=== PATIENT | female | born 1970 | race American Indian/Alaskan Native ===

== ENCOUNTER 2020-12-01 14:35 | Emergency (ER) | payer OTHER, MEDICAID, SELFPAY ==
[2020-12-01 14:52] VITALS: BP 105/63; PULSE 82; RESP 18; TEMP 36.6; O2SAT 98
--- NOTE | 2020-12-01 14:58 | DI.RAD.S_ITS ---
PROCEDURE: XR CHEST 2V INDICATIONS: cough/congestion TECHNIQUE: 2 views of the chest were acquired. COMPARISON: None. FINDINGS: Surgical changes and devices: None. Lungs and pleura: Lungs are clear. No pleural effusions or pneumothorax. Mediastinum: Mediastinal contours are normal. Heart size is normal. Bones and chest wall: No suspicious bony abnormalities. Soft tissues appear unremarkable. IMPRESSION: No acute cardiopulmonary disease process. Dictated by: Stacey Baca MD, PhD on 12/01/2020 at 15:38 Approved by: Stacey Baca MD, PhD on 12/01/2020 at 15:38
[2020-12-01 15:45] LABS: COVID19 -Nasal RAPID Negative (Negative)
--- NOTE | 2020-12-01 17:35 | ED.URI ---
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 She states she was vaccinated against COVID several months ago. She denies any fevers muscle aches or chills. She denies any nausea vomiting or diarrhea. She denies any chest pain, shortness of breath or ear pain. Related Data Allergies Allergy/AdvReac Type Severity Reaction Status Date / Time No Known Allergies Allergy Unknown Unverified 08/03/17 12:19 [NO KNOWN ALLERGIES] ondansetron [ONDANSETRON] Allergy Unknown ORAL FOR Unverified 08/03/17 12:19 MAKES HER VOMIT MORE Review of Systems <KENDRA Chandler - Last Filed: 12/01/20 18:31> Review of Systems Narrative: GENERAL: Denies chills, fatigue, malaise, fever, sweats. HEENT: see HPI RESPIRATORY: see HPI CARDIOVASCULAR: Denies chest pain, palpitations, orthopnea, edema, GASTROINTESTINAL: Denies nausea, vomiting, abdominal pain, diarrhea, constipation, melena. : Denies dysuria, frequency, incontinence, hematuria, urinary retention. MUSCULOSKELETAL: denies weakness, joint pain, or bony pain SKIN: Denies rash, skin lesions, or other NEUROLOGIC: Denies weakness, headache, numbness, change in speech, confusion, seizures, incoordination. PSYCHIATRIC: No concerning psychosocial issues. 12 point review of systems is negative except for those stated above Exam <DEBRA Chandler - Last Filed: 12/01/20 18:31> Narrative Exam Narrative: GENERAL: This is a well-nourished, well-developed patient, in No acute distress HEAD: Atraumatic. Normocephalic. No temporal or scalp tenderness. EYES: Pupils equal round and reactive. Extraocular motions intact. No scleral icterus. No injection or drainage. ENT: Nose without bleeding, purulent drainage or septal hematoma. Throat without erythema, tonsillar hypertrophy or exudate. Uvula midline. Airway patent. bilateral TMs pearly lawson. NECK: Trachea midline. No JVD or lymphadenopathy. Supple, nontender, no meningeal signs. CARDIOVASCULAR: Regular rate and rhythm RESPIRATORY: Clear to auscultation. Breath sounds equal bilaterally. No wheezes, rales, or rhonchi. No cough. No increased respiratory effort. . No accessory muscle use. GASTROINTESTINAL: Abdomen soft, non-tender, nondistended. No hepato-splenomegaly, or palpable masses. No guarding. EXTREMITIES: No clubbing, cyanosis, or edema. No joint tenderness, effusion, or edema noted. BACK: Nontender without deformity or crepitance. No flank tenderness. NEURO: AOx3. SKIN: No rash or erythema On visible skin Initial Vital Signs Initial Vital Signs: Vital Signs Temperature 97.8 F 12/01/20 14:52 Pulse Rate 82 12/01/20 14:52 Respiratory Rate 18 12/01/20 14:52 Blood Pressure 105/63 12/01/20 14:52 Pulse Oximetry 98 12/01/20 14:52 <Harrison Jackman DO - Last Filed: 12/01/20 18:32> Initial Vital Signs Initial Vital Signs: Vital Signs Temperature 97.8 F 12/01/20 14:52 Pulse Rate 82 12/01/20 14:52 Respiratory Rate 18 12/01/20 14:52 Blood Pressure 105/63 12/01/20 14:52 Pulse Oximetry 98 12/01/20 14:52 Scores <DEBRA Chandler - Last Filed: 12/01/20 18:31> GCS Romeo coma scale eye opening: Spontaneous Gilbert coma scale verbal response: Orientated Gilbert coma scale motor response: Obey commands Gilbert coma scale total score: 15 <Harrison Jackman DO - Last Filed: 12/01/20 18:32> GCS Romeo coma scale total score: 15 Course <DEBRA Chandler - Last Filed: 12/01/20 18:31> Orders Ordered: ED Orders 12/01/20 14:58 Chest [XR chest 2V] Stat COVID19 -Nasal swab/Pre-Proc Stat Vital Signs Vital signs: Vital Signs - 8 hr 12/01/20 14:52 12/01/20 17:46 Temperature 97.8 F Pulse Rate 82 66 Respiratory Rate 18 14 Blood Pressure 105/63 106/58 L Pulse Oximetry 98 99 <Harrison FuentesDO shelbi - Last Filed: 12/01/20 18:32> Orders Ordered: ED Orders 12/01/20 14:58 Chest [XR chest 2V] Stat COVID19 -Nasal swab/Pre-Proc Stat Vital Signs Vital signs: Vital Signs - 8 hr 12/01/20 14:52 12/01/20 17:46 Temperature 97.8 F Pulse Rate 82 66 Respiratory Rate 18 14 Blood Pressure 105/63 106/58 L Pulse Oximetry 98 99 MDM - URI/Sore Throat <DEBRA Chandler - Last Filed: 12/01/20 18:31> Lab Data Labs: Lab Results 12/01/20 Range/Units 14:58 SARS-CoV-2 (PCR) Negative (Negative) Imaging Data Chest x-ray: Radiologist's Impression: [address] [place] [id number] ReportSigned Patient: Peg Mcknight AMR#: [id number]: 1970Acct:[id number]/Sex: 50 / FDate of Service: 12/01/20Loc: EDAccession Number: [id number] Procedure: XR chest 2V Ordering Provider: Radha Rosales PROCEDURE: XR CHEST 2V INDICATIONS: cough/congestion TECHNIQUE: 2 views of the chest were acquired. COMPARISON: None. FINDINGS: Surgical changes and devices: None. Lungs and pleura: Lungs are clear. No pleural effusions or pneumothorax. Mediastinum: Mediastinal contours are normal. Heart size is normal. Bones and chest wall: No suspicious bony abnormalities. Soft tissues appear unremarkable. IMPRESSION: No acute cardiopulmonary disease process. Dictated by: Stacey Baca MD, PhD on 12/01/2020 at 15:38 Approved by: Stacey Baca MD, PhD on 12/01/2020 at 15:38 [facility] Narrative Medical decision making narrative: the patient is a 42-year-old female who presents with a chief complaint of 3 days of coughing congestion. X-ray is no acute findings, coronavirus test is negative. She appears well and nontoxic. I discussed at length follow up with primary care provider coming back to the ER for acute concerns, discussed at length use of [id number] medications. Room agents no questions or concerns upon discharge states understanding of return precautions as well as follow-up care, has been hemodynamically stable throughout her stay in the ER. <Harrison Jackman DO - Last Filed: 12/01/20 18:32> Lab Data Labs: Lab Results 12/01/20 Range/Units 14:58 SARS-CoV-2 (PCR) Negative (Negative) Discharge Plan Departure Patient Disposition: Home Clinical Impression: Upper respiratory infection Qualifiers: URI type: unspecified viral URI Qualified Code(s): J06.9 - Acute upper respiratory infection, unspecified Instructions: DI for Viral Upper Respiratory Infection -- Adult Activity Restrictions/Additional Instructions: thank you for trusting us with your care today with your care today. As discussed, your to chest x-ray and no acute findings and no indication Of pneumonia. Your COVID came back negative and your exam is reassuring. Please use [id number] measures as needed and able. As discussed, please follow-up with primary care provider in the next few days. Please come back to the emergency department for any acute concerns. I have given you contact information to the [facility] natural resources specialist, who can help you identify primary care provider in the area. Referrals: [facility] [Outside] <Harrison Jackman DO - Last Filed: 12/01/20 18:32> Cosign ED Attending Cosignature Attestation: Dr Jackman Co-Sign Statement: I was available for consultation during this patient's emergency department visit. This chart is signed by myself for administrative purposes only. I did not have direct contact with this patient during this visit. They were seen independently by the APC.
[2020-12-01 17:46] VITALS: BP 106/58; PULSE 66; RESP 14; O2SAT 99
== END 2020-12-01 18:06 | disposition home or self-care (01) ==
PROVIDERS: Emergency Provider Nurse Practitioner Family
DX: J06.9 Acute upper respiratory infection, unspecified (principal); Z20.822 Contact with and (suspected) exposure to COVID-19
CPT/HCPCS: 71046; 87635; 99282; 99283; C9803

== ENCOUNTER 2021-01-26 15:14 | Emergency (ER) | payer OTHER, MEDICAID, SELFPAY ==
[2021-01-26 15:17] VITALS: BP 97/50; PULSE 83; RESP 18; TEMP 36.6; O2SAT 97
--- NOTE | 2021-01-26 15:23 | DI.RAD.S_ITS ---
PROCEDURE: XR CHEST 2V INDICATIONS: cough/congestion TECHNIQUE: 2 views of the chest were acquired. COMPARISON: [facility], CR, XR CHEST 2V, 12/01/2020, 15:11. FINDINGS: Surgical changes and devices: None. Lungs and pleura: Elevation of right hemidiaphragm is seen suggestive of small right pleural effusion. Ill-defined airspace opacities in bilateral lower lung spencer are seen more prominent on the right side. No pneumothorax. Mediastinum: Mediastinal contours are normal. Heart size is normal. Bones and chest wall: No suspicious bony abnormalities. Soft tissues appear unremarkable. IMPRESSION: Suggestion of small right pleural effusion and right worse than left bilateral lower lobe infiltrate/atelectasis. No gross pneumothorax. Dictated by: Davey Diego M.D. on 01/26/2021 at 15:39 Approved by: Davey Diego M.D. on 01/26/2021 at 15:39
--- NOTE | 2021-01-26 19:47 | ED_ITS ---
HPI - URI/Sore Throat General Chief Complaint: Upper Respiratory Symptoms Stated Complaint: HAVE PNEUMONIA SOB Time Seen by Provider: 01/26/21 19:44 Source: patient Mode of arrival: Ambulatory Limitations: no limitations History of Present Illness HPI Narrative: This is a 50-year-old female who comes to the emergency department with complaint of pneumonia that was diagnosed on the 19 of January. Patient was started on Augmentin and doxycycline. She has been taking the Augmentin only. She has had nausea when she takes it. She has not had fevers. She continued to have pain particularly in the morning when she wakes up and feels wheezy and has a lot of coughing. She has not had any lightheadedness or passing out. She does not have persistent chest pain. She does not have vomiting. She has not any abdominal, back or flank pain. No urinary symptoms. No diarrhea constipation. She does not any swelling in her extremities. 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 She has not used since November. She denies any other known medical issues. She has had a cholecystectomy. She has not been smoking last couple days but does normally smoke. She denies any daily alcohol. She denies any recent or IV drug use. Patient was seen at a urgent care in [place], [place]. Related Data Previous Rx's Medication Instructions Recorded levofloxacin 750 mg tablet 750 mg PO DAILY 7 Days #7 tab 01/26/21 Allergies Allergy/AdvReac Type Severity Reaction Status Date / Time No Known Allergies Allergy Unknown Unverified 08/03/17 12:19 [NO KNOWN ALLERGIES] ondansetron [ONDANSETRON] Allergy Unknown ORAL FOR Unverified 08/03/17 12:19 MAKES HER VOMIT MORE Review of Systems Review of Systems ROS Unobtainable: All systems reviewed & are unremarkable except as noted in HPI and below Patient History Social History Smoking Status: Current every day smoker Smoking Status: Current every day smoker Exam Narrative Exam Narrative: GENERAL: Alert and oriented x three, thin female in mild distress. HEENT: Head normocephalic, atraumatic, EOMI, pupils reactive, face symmetric, moist mucous membranes NECK: Supple, full range of motion CARDIOVASCULAR: Regular rate and rhythm without murmurs, rubs or gallops. RESPIRATORY: Breath sounds equal bilaterally, no wheezes rales or rhonchi. No tachypnea accessory muscle use. ABDOMEN: Soft, nontender. Normoactive bowel sounds all 4 quadrants. No guarding or rebound, rigidity, no mass : No CVA tenderness EXTREMITIES: Normal range of motion, no edema bilateral lower extremity. Neurovascularly intact NEUROLOGICAL: Cranial nerves II through XII grossly intact. Moving all extremities SKIN: Warm, dry, no petechiae, no rashes or lesions. Initial Vital Signs Initial Vital Signs: Vital Signs Temperature 97.9 F 01/26/21 15:17 Pulse Rate 83 01/26/21 15:17 Respiratory Rate 18 01/26/21 15:17 Blood Pressure 97/50 L 01/26/21 15:17 Pulse Oximetry 97 01/26/21 15:17 Course Orders Ordered: ED Orders 01/26/21 20:38 COVID19 -Nasal swab/Pre-Proc Stat Discontinued Medications Albuterol (Albuterol Hfa Prepack) 1 box [facility] SEEINSTR ONE Stop: 01/26/21 19:59 Last Admin: 01/26/21 20:35 Dose: 1 box Documented by: RAMON Vital Signs Vital signs: Vital Signs - 8 hr 01/26/21 15:17 Temperature 97.9 F Pulse Rate 83 Respiratory Rate 18 Blood Pressure 97/50 L Pulse Oximetry 97 MDM - URI/Sore Throat Lab Data Labs: Lab Results 01/26/21 Range/Units 20:38 SARS-CoV-2 (PCR) Negative (Negative) Imaging Data Chest x-ray: Radiologist's Impression: [address] [address] XRay Report Signed Patient: Peg Mcknight MR#: [id number] : 1970 Acct:[id number] Age/Sex: 50 / F Date of Service: 01/26/21 Loc: ED Accession Number: [id number] ?? Procedure: XR chest 2V Ordering Provider: Lora Peguero D.O. PROCEDURE:? XR CHEST 2V ? INDICATIONS:? cough/congestion ? TECHNIQUE:? 2 views of the chest were acquired.? ? COMPARISON:? [facility], [facility], XR CHEST 2V, 12/01/2020, 15:11. ? FINDINGS:? ? Surgical changes and devices:? None.? ? Lungs and pleura:? Elevation of right hemidiaphragm is seen suggestive of small right pleural effusion.? Ill-defined airspace opacities in bilateral lower lung spencer are seen more prominent on the right side.? No pneumothorax. ? Mediastinum:? Mediastinal contours are normal.? Heart size is normal.? ? Bones and chest wall:? No suspicious bony abnormalities.? Soft tissues appear unremarkable.? ? IMPRESSION:? Suggestion of small right pleural effusion and right worse than left bilateral lower lobe infiltrate/atelectasis.? No gross pneumothorax. ? ? Dictated by: Davey Diego M.D. on 01/26/2021 at 15:39 ? ? Approved by: Davey Diego M.D. on 01/26/2021 at 15:39?? [facility] Narrative Medical decision making narrative: This is a 50-year-old female who was diagnosed with pneumonia approximately 1 week ago. Patient has been taking Augmentin, she has been prescribed doxycycline Augmentin but found the doxycycline to harsh. Patient has not been worsening but has not improved. She is not having active fevers. Chest x-ray does show pneumonia day but we do not have her prior for comparison. COVID swab was negative. Patient lives on [facility] deferred additional workup is they would not be able to make their very home tonight. Patient was switched to a new oral antibiotic. She is not wheezy here in the department but was given a albuterol MDI to see if this is helpful. She was asked to return for re-evaluation if she is not improving in the short term or if there are any additional concerns. Discharge Plan Departure Patient Disposition: Home Clinical Impression: Pneumonia Instructions: DI for Pneumonia -- Adult Activity Restrictions/Additional Instructions: Follow up with your physician for recheck. Call for an appointment. You do have pneumonia on your x-ray still. Can try changing her antibiotics if you are not having any improvement. I do recommend using albuterol 1-2 puffs every 4 hours for any wheezing or shortness of breath. Your COVID swab is pending and has not resulted. Please return for new or worsening symptoms your having fevers, worsening chest pain or shortness of breath, persistent vomiting, new swelling in her extremities or other new or concerning symptoms. Prescriptions: New levofloxacin 750 mg tablet 750 mg PO DAILY 7 Days Qty: 7 RF: 0
[2021-01-26] MEDS: ALBUTEROL HFA PREPACK 1 BOX MISC (20:35)
[2021-01-26 20:54] LABS: COVID19 -Nasal RAPID Negative (Negative)
== END 2021-01-26 20:34 | disposition home or self-care (01) ==
PROVIDERS: Emergency Provider Emergency Medicine
DX: J18.9 Pneumonia, unspecified organism (principal); Z20.822 Contact with and (suspected) exposure to COVID-19
CPT/HCPCS: 71046; 87635; 99283; C9803

== ENCOUNTER → 2021-04-03 09:53 | Outpatient (CLI) | payer OTHER, MEDICAID, SELFPAY ==
[2021-04-03 12:20] LABS: COVID19 -Nasal RAPID Negative (Negative)
== END ==
PROVIDERS: PCP Family Medicine; Visit Provider Surgery
DX: Z01.812 Encounter for preprocedural laboratory examination (principal); Z20.822 Contact with and (suspected) exposure to COVID-19
CPT/HCPCS: 87635; C9803

== ENCOUNTER 2021-04-06 08:31 | Day surgery (SDC) | payer OTHER, MEDICAID, SELFPAY ==
[2021-04-06] VITALS (8 sets, daily range): BP systolic 84–103; BP diastolic 51–61; PULSE 58–85; RESP 14–18; TEMP 36.4–37; O2SAT 98–100; BMI 17.9
[2021-04-06] MEDS: LACTATED RINGERS 1,000 ML 200 ML IV (08:54)
--- NOTE | 2021-04-06 08:59 | PM.PREOP ---
Pre-operative Note Interval Note History & Physical reviewed/Exam performed by Physician: Yes Changes to H&P: No
[2021-04-06] MEDS: fentaNYL 250 MCG/5 ML INJ IV (09:21)
[2021-04-06] MEDS: LIDOCAINE 4% SOLN 50 ML 20 ML TOP (09:24)
[2021-04-06] MEDS: MIDAZOLAM 5 MG/5 ML VIAL IV (09:24)
--- NOTE | 2021-04-06 09:38 | P.OP.EGD&C_ITS ---
Operative Date/Time/Diagnoses Date of procedure: 04/06/21 Time of procedure: 09:38 Pre-op diagnosis: Anemia Post-op diagnosis: other (Gastritis) Procedure & Clinicians Study performed: Esophagoduodenoscopy and colonoscopy Same procedure as scheduled: Yes Indications: Anemia Surgeon: Garry Xavier Procedure Notes Procedure in detail: Medications: Conscious sedation using 7mg IV midazolam and 150mcg IV of fentanyl The history and physical was performed/updated and the patient is ASA class is 2 . The procedure was discussed in detail with the patient. Potential risks complications including infection, bleeding, missed diagnosis, perforation, need for surgery, and were explained. Their questions were answered and informed consent was obtained. Patient placed in left lateral decubitus position. Time out was performed. P rocedural sedation was administered with Versed and Fentanyl. A bite block was placed. the scope was inserted into the mouth and advanced through the esophagus and into the stomach. Stomach was significant for mild gastritis. Pylorus was intubated and the duodenum was normal to the 2nd portion. The scope was retroflexed within the stomach and there was a hiatal hernia. The scope was withdrawn into the esophagus the Z line was seen at 37 cm from the incisions. There was no Coelho's esophagitis or masses or strictures. Stomach was desufflated and scope removed. Patient tolerated procedure well. Examination began with a thorough inspection of the perianal area there was no evidence of fissures, fistulae, external hemorrhoids or cutaneous malignancy. The colonoscopy scope was then placed into the anal canal and was advanced to the cecum, which was identified by the ileocecal valve, the appendiceal orifice and the confluence of the taenia. The scope was then slowly withdrawn examining colon thoroughly in all directions, irrigating it of any residual stool. FINDINGS 1. Mild gastritis. No ulcers 2. Tortuous colon. no masses or polyps The patient tolerated the procedure well. They will be discharged once criteria are met. The prep was of good/excellent quality. The withdrawl time was 6 minutes. The sedation time was 30 minutes. Findings: gastritis Specimen(s): none sent Complications: none Impression: Gastritis Post-procedure Recommendations: Colonscopy in 10 years Plan for aftercare: Pepcid once daily Disposition: same day surgery
--- NOTE | 2021-04-06 10:09 | SUR.PHASEI ---
0940 hrs: Pt arrives PACU breathing unassisted, Report from JUAN Gonzalez.
--- NOTE | 2021-04-06 10:10 | SUR.PHASEI ---
1001 hrs: Pt to [facility] 3. Report to JUAN Willingham.
--- NOTE | 2021-04-06 10:22 | SUR.PHASEII ---
Pt ready to go, ride called, call went to voicemail, mailbox full. Pt w/o complaints.
--- NOTE | 2021-04-06 10:49 | SUR.PHASEII ---
Kevin called again, still not available.
== END 2021-04-06 11:15 | disposition home or self-care (01) ==
PROVIDERS: PCP Family Medicine; Referring Provider Surgery; Visit Provider Surgery
PROC: 0DJ08ZZ Inspection of Upper Intestinal Tract, Via Natural or Artificial Opening Endoscopic (ICD-10-PCS; CPT 43235; principal; 2021-04-06 09:15)
PROC: 0DJD8ZZ Inspection of Lower Intestinal Tract, Via Natural or Artificial Opening Endoscopic (ICD-10-PCS; CPT 45378; 2021-04-06 09:15)
DX: D64.9 Anemia, unspecified (principal); R63.4 Abnormal weight loss; R10.30 Lower abdominal pain, unspecified; Z68.1 Body mass index [BMI] 19.9 or less, adult; F17.210 Nicotine dependence, cigarettes, uncomplicated; K44.9 Diaphragmatic hernia without obstruction or gangrene; K29.70 Gastritis, unspecified, without bleeding
CPT/HCPCS: 43235; 45378; 99152; 99153; J2250; J3010

== ENCOUNTER 2021-05-20 13:27 | Emergency (ER) | payer OTHER, MEDICAID, SELFPAY ==
[2021-05-20 13:30] VITALS: BP 105/51; PULSE 68; RESP 14; TEMP 36.3; O2SAT 100; BMI 18.3
--- NOTE | 2021-05-20 13:37 | DI.RAD.S_ITS ---
PROCEDURE: XR SHOULDER RT MIN 2V INDICATIONS: shoulder pain TECHNIQUE: 3 views of the shoulder were acquired. COMPARISON: [facility], CR, XR CHEST 2V, 01/26/2021, 15:33. FINDINGS: Bones: No fractures or dislocations. No suspicious bony lesions. Visualized ribs appear intact. Soft tissues: No suspicious soft tissue calcifications. IMPRESSION: No acute osseous abnormality. Dictated by: Bonifacio Mccoy M.D. on 05/20/2021 at 13:49 Approved by: Bonifacio Mccoy M.D. on 05/20/2021 at 13:50
[2021-05-20 14:41] VITALS: BP 109/54; PULSE 67; O2SAT 99
--- NOTE | 2021-05-20 15:00 | ED_ITS ---
HPI - Extremity Problem General Chief complaint: Extremity Problem,Nontraumatic Stated complaint: Pain in right shoulder for over a month Time Seen by Provider: 05/20/21 15:00 Source: patient Mode of arrival: Ambulatory History of Present Illness HPI Narrative: Patient is a 51-year-old female who is here for evaluation of right shoulder pain. The pain is been going on for the past 6 weeks. No specific injury that caused the discomfort. Has now having problems putting her arm and certain positions. Has not been evaluated for this up to this point. Has not tried anything for the symptoms up to this point. She states when the pain becomes very intense it radiates down the front of her right arm. She has no tingling in her hand. Related Data Home Medications Medication Instructions Recorded Confirmed albuterol sulfate 90 mcg/actuation 1 puff INHALATION Q4-6H PRN g 03/25/21 04/06/21 aerosol inhaler buprenorphine 8 mg-naloxone 2 mg 1 film SUBLINGUAL BID ea 03/25/21 04/06/21 sublingual film (Suboxone) buspirone 15 mg tablet 15 mg PO BID 03/25/21 04/06/21 food supplemt, lactose-reduced ea PO 03/25/21 03/25/21 (Ensure) trazodone 50 mg tablet 50 mg PO DAILY 03/25/21 04/06/21 Previous Rx's Medication Instructions Recorded famotidine 20 mg tablet 20 mg PO DAILY #90 tab 04/06/21 Allergies Allergy/AdvReac Type Severity Reaction Status Date / Time No Known Allergies Allergy Unknown Verified 05/20/21 13:34 [NO KNOWN ALLERGIES] Review of Systems Constitutional Constitutional: Reports system reviewed and no additional complaints, except as documented Musculoskeletal Musculoskeletal: Reports system reviewed and no additional complaints, except as documented and Reports as per HPI Integumentary/Breasts Skin/Breast: Reports system reviewed and no additional complaints, except as documented Neurologic Neurologic: Reports system reviewed and no additional complaints, except as documented and Reports as per HPI Hematologic/Lymphatic On Anticoagulants: No Patient History Medical History Anemia Surgical History H/O right knee surgery History of cholecystectomy Surgical history of tubal ligation Family History Grandmother Hypertension Stroke Sister Gallstones Grandmother Colon cancer Social History marital status: unknown household members: family occupational status: unemployed Smoking Status: Former smoker alcohol intake: former Smoking Status: Former smoker alcohol intake frequency: holidays/special occasions only Substance Use Type: does not use Exam Initial Vital Signs Initial Vital Signs: Vital Signs Temperature 97.4 F L 05/20/21 13:30 Pulse Rate 68 05/20/21 13:30 Respiratory Rate 14 05/20/21 13:30 Blood Pressure 105/51 L 05/20/21 13:30 Pulse Oximetry 100 05/20/21 13:30 HENMT Head: normal to inspection and normocephalic Resp Effort & Inspection: normal respiratory effort Auscultation: clear to auscultation bilaterally Cardio Pulses: radial pulses present on the right Skin General: no rashes or lesions noted Neuro General: patient alert, patient awake, patient oriented x3 and moves all extremities Extrem General: capillary refill normal Other: Patient with tenderness to palpation over the AC joint on the right and also tenderness over the biceps tendon. Has a positive Neer test. Positive [place]field test. Positive cross-arm test. Also has some tenderness along the scapula on the right. Course Orders Ordered: ED Orders 05/20/21 13:37 XR shoulder RT min 2V Stat Vital Signs Vital signs: Vital Signs - 8 hr 05/20/21 13:30 05/20/21 14:41 Temperature 97.4 F L Pulse Rate 68 67 Respiratory Rate 14 Blood Pressure 105/51 L 109/54 L Pulse Oximetry 100 99 MDM - Extremity (Nontraumatic) Imaging Data Extremity x-ray #1: Radiologist's Impression: [address] [address] XRay Report Signed Patient: Peg Mcknight MR#: [id number] : 1970 Acct:[id number] Age/Sex: 51 / F Date of Service: 05/20/21 Loc: ED Accession Number: [id number] ?? Procedure: XR shoulder RT min 2V Ordering Provider: Harrison Jackman D.O. PROCEDURE:? XR SHOULDER RT MIN 2V ? INDICATIONS:? shoulder pain ? TECHNIQUE:? 3 views of the shoulder were acquired.? ? COMPARISON:? [facility], CR, XR CHEST 2V, 01/26/2021, 15:33. ? FINDINGS:? ? Bones:? No fractures or dislocations.? No suspicious bony lesions.? Visualized ribs appear intact.? ? Soft tissues:? No suspicious soft tissue calcifications.? ? IMPRESSION:? No acute osseous abnormality. ? ? Dictated by: Bonifacio Mccoy M.D. on 05/20/2021 at 13:49 ? ? Approved by: Bonifacio Mccoy M.D. on 05/20/2021 at 13:50? MDM Narrative Medical decision making narrative: Patient is neurovascularly intact. X-ray shows no signs of fracture nor dislocation. I do suspect soft tissue injury potentially biceps tendon injury or rotator cuff for both. No indication for admission the hospital. Informed patient she talk with her primary doctor about a referral to see Physical therapy. She was given return precautions. She expressed understanding and agreement. Discharge Plan Departure Patient Disposition: Home Clinical Impression: Right shoulder pain Instructions: Shoulder Tendinopathy, How To Perform RICE (Rest, Ice, Compress, Elevate) Activity Restrictions/Additional Instructions: I recommend that you continue all of your medications as directed. I also recommend that you start on anti-inflammatories such as Motrin/ibuprofen. Be sure to take this with some food. You can also take Tylenol. You need to contact your primary doctor to discuss the indications for referral to see Physical therapy. Return to the emergency department for any new or worsening symptoms. Prescriptions: No Action trazodone 50 mg tablet 50 mg PO DAILY 0RF buprenorphine-naloxone [Suboxone] 8-2 mg film 1 film sublingual BID 0RF buspirone 15 mg tablet 15 mg PO BID 0RF albuterol sulfate 90 mcg/actuation HFA aerosol inhaler 1 puff inhalation Q4-6H PRN (Reason: Adequate Ventilation) 0RF Ensure Liquid PO 0RF famotidine 20 mg tablet 20 mg PO DAILY Qty: 90 0RF Referrals: Liyah Carlin MD [Primary Care Provider] -
== END 2021-05-20 15:18 | disposition home or self-care (01) ==
PROVIDERS: Emergency Provider Emergency Medicine; PCP Family Medicine
DX: M25.511 Pain in right shoulder (principal)
CPT/HCPCS: 73030; 99283

== ENCOUNTER 2021-08-16 17:59 | Emergency (ER) | payer OTHER, MEDICAID, SELFPAY ==
[2021-08-16 18:10] VITALS: BP 95/54; PULSE 61; RESP 18; TEMP 36.4; O2SAT 100; BMI 19.2
--- NOTE | 2021-08-16 18:43 | ED_ITS ---
HPI - General Adult General Chief complaint: Dental/Oral Stated complaint: Left lower jaw pain today Time Seen by Provider: 08/16/21 18:43 Source: patient Mode of arrival: Ambulatory Limitations: no limitations History of Present Illness HPI narrative: 51-year-old female who is here for evaluation of left-sided jaw pain. States that it started just a few hours ago. She was eating something at the time but she did not think that she bit down on anything hard. She has no ear pain. Has had some dental issues in the past. No problems swallowing. No rashes. Has not tried anything for the symptoms prior to arrival. Related Data Home Medications Medication Instructions Recorded Confirmed albuterol sulfate 90 mcg/actuation 1 puff INHALATION Q4-6H PRN g 03/25/21 04/06/21 aerosol inhaler buprenorphine 8 mg-naloxone 2 mg 1 film SUBLINGUAL BID ea 03/25/21 04/06/21 sublingual film (Suboxone) buspirone 15 mg tablet 15 mg PO BID 03/25/21 04/06/21 food supplemt, lactose-reduced ea PO 03/25/21 03/25/21 (Ensure) trazodone 50 mg tablet 50 mg PO DAILY 03/25/21 04/06/21 Previous Rx's Medication Instructions Recorded famotidine 20 mg tablet 20 mg PO DAILY #90 tab 04/06/21 Allergies Allergy/AdvReac Type Severity Reaction Status Date / Time No Known Allergies Allergy Unknown Verified 08/16/21 18:14 [NO KNOWN ALLERGIES] Review of Systems Constitutional Constitutional: Reports as per HPI and Reports system reviewed and no additional complaints, except as documented ENT Ears, Nose, Mouth, and Throat: Reports system reviewed and no additional complaints, except as documented and Reports as per HPI Respiratory Respiratory: Reports system reviewed and no additional complaints, except as documented Integumentary/Breasts Skin/Breast: Reports system reviewed and no additional complaints, except as documented Hematologic/Lymphatic On Anticoagulants: No Patient History Medical History Anemia Surgical History H/O right knee surgery History of cholecystectomy Surgical history of tubal ligation Family History Grandmother Hypertension Stroke Sister Gallstones Grandmother Colon cancer Social History marital status: unknown household members: family occupational status: unemployed Smoking Status: Former smoker alcohol intake: former Smoking Status: Former smoker alcohol intake frequency: holidays/special occasions only Substance Use Type: does not use Exam Initial Vital Signs Initial Vital Signs: Vital Signs Temperature 97.5 F L 08/16/21 18:10 Pulse Rate 61 08/16/21 18:10 Respiratory Rate 18 08/16/21 18:10 Blood Pressure 95/54 L 08/16/21 18:10 Pulse Oximetry 100 08/16/21 18:10 HENMT Head: normal to inspection and normocephalic Ears: TM's normal bilaterally Mouth: lip normal, tongue normal and moist mucous membranes Teeth and gingiva: fair dentition Neck Other: One sub cm tender left submandibular lymph node that is the source of her discomfort Resp Effort & Inspection: normal respiratory effort Skin General: no rashes or lesions noted Neuro General: patient alert, patient awake and moves all extremities Extrem General: capillary refill normal Psych Appearance: grossly normal Course Orders Ordered: Discontinued Medications Ibuprofen (Ibuprofen 400 Mg Tablet) 800 mg PO NOW ONE Stop: 08/16/21 18:49 Last Admin: 08/16/21 18:55 Dose: 800 mg Documented by: LILY Vital Signs Vital signs: Vital Signs - 8 hr 08/16/21 18:10 Temperature 97.5 F L Pulse Rate 61 Respiratory Rate 18 Blood Pressure 95/54 L Pulse Oximetry 100 Medical Decision Making [facility] Narrative Medical decision making narrative: Patient does have fair dentition however there does not appear to be any specific dental infection. Abscess seen. She does have a subcentimeter left- sided lymph node where she reports that the pain is coming from. The rest of her exam is unremarkable. Recommend anti-inflammatories for now. No indication for antibiotics. She was given return precautions follow-up instructions. She expressed understanding and agreement. Discharge Plan Departure Patient Disposition: Home Clinical Impression: Jaw pain Activity Restrictions/Additional Instructions: There is no signs of any infection today. No indication for any antibiotics. You can take Tylenol/ibuprofen for any discomfort. Return to the emergency department for any new or worsening symptoms. Prescriptions: No Action trazodone 50 mg tablet 50 mg PO DAILY 0RF buprenorphine-naloxone [Suboxone] 8-2 mg film 1 film sublingual BID 0RF buspirone 15 mg tablet 15 mg PO BID 0RF albuterol sulfate 90 mcg/actuation HFA aerosol inhaler 1 puff inhalation Q4-6H PRN (Reason: Adequate Ventilation) 0RF Ensure Liquid PO 0RF famotidine 20 mg tablet 20 mg PO DAILY Qty: 90 0RF Referrals: Liyah Carlin MD [Primary Care Provider] -
[2021-08-16] MEDS: IBUPROFEN 400 MG TABLET 800 MG PO (18:55)
== END 2021-08-16 19:00 | disposition home or self-care (01) ==
PROVIDERS: Emergency Provider Emergency Medicine; PCP Family Medicine
DX: R68.84 Jaw pain (principal)
CPT/HCPCS: 99283

== ENCOUNTER 2021-10-10 19:10 | Emergency (ER) | payer OTHER, MEDICAID, SELFPAY ==
[2021-10-10 19:56] VITALS: BP 138/65; PULSE 62; RESP 17; TEMP 37.1; O2SAT 99; BMI 19.2
== END 2021-10-10 22:22 | disposition left against medical advice (07) ==
PROVIDERS: Emergency Provider Emergency Medicine; PCP Family Medicine
CPT/HCPCS: 99281

== ENCOUNTER → 2022-03-09 13:40 | Outpatient (CLI) | payer MEDICAID, OTHER, SELFPAY ==
[2022-03-09 14:41] LABS: Add Manual Diff / Slide Review NO; Basophils Absolute Auto 100 /uL (0-100); Eosinophils Absolute Auto 100 /uL (0-450); Eosinophils Percent Auto 1.5 % (2-4); Hemoglobin 13.9 g/dL (12.0-16.0); Lymphocytes Absolute Auto 1200 /uL (1100-4500); Lymphocytes Percent Auto 32.8 % (25-40); Mean Corpuscular HGB Conc 33.8 % (30-36); Mean Corpuscular Hemoglobin 28.9 PG (26-34); Mean Corpuscular Volume 85.4 fL (80-100); Monocytes Absolute Auto 200 /uL (0-900); Monocytes Percent Auto 6.3 % (3-14); Neutrophils Absolute Auto 2100 /uL (1500-7000); Neutrophils Percent Auto 57.4 % (50-75); Platelet Count 398 X10^3/uL (150-400); Red Cell Distribution Width 13.6 % (11.6-14.8); White Blood Cell Count 3.7 X10^3/uL (4.5-11.0)
[2022-03-09 14:58] LABS: C-Reactive Protein Quant < 0.5 mg/dL (<1.0)
[2022-03-09 15:04] LABS: Erythrocyte Sedimentation Rate 2 MM/HR (0-20)
[2022-03-10 08:10] LABS: Toxoplasma gohndii IgG 16.4 IU/mL (0.0-7.1); Toxoplasma gondii IgM <3.0 AU/mL (0.0-7.9)
[2022-03-10 08:59] LABS: RPR Screen Non Reactive (Non Reactive)
[2022-03-11 15:12] LABS: QuantiFERON Mitogen Value >10.00 IU/mL (.); QuantiFERON TB Gold Plus Negative (Negative); QuantiFERON TB1 Ag Value 0.15 IU/mL (.); QuantiFERON TB2 Ag Value 0.08 IU/mL (.)
[2022-03-12 12:00] LABS: Lysozyme (Muramidase) 5.9 ug/mL (2.5-12.9)
[2022-03-16 21:07] LABS: HLA B27 Negative (.)
[2022-03-29 13:08] LABS: Treponema pallidum Antibodies Non Reactive
== END ==
PROVIDERS: PCP Family Medicine; Referring Provider Ophthalmology; Visit Provider Ophthalmology
DX: H20.012 Primary iridocyclitis, left eye (principal)
CPT/HCPCS: 36415; 81374; 85025; 85549; 85651; 86140; 86480; 86592; 86777; 86778; 86780

== ENCOUNTER → 2023-10-22 10:45 | Outpatient (CLI) | payer MEDICAID, OTHER, SELFPAY ==
--- NOTE | 2023-10-22 | DI.RAD.S_ITS ---
PROCEDURE: XR CHEST 2V INDICATIONS: PNA TECHNIQUE: 2 views of the chest were acquired. COMPARISON: [facility], CR, XR CHEST 2V, 01/26/2021, 15:33. [facility], CR, XR CHEST 2V, 12/01/2020, 15:11. FINDINGS: Surgical changes and devices: None. Lungs and pleura: Streaky right middle lung zone opacity. Retrocardiac opacity also present. Mediastinum: Mediastinal contours are normal. Heart size is normal. Bones and chest wall: No suspicious bony abnormalities. Soft tissues appear unremarkable. IMPRESSION: Streaky right middle lung zone opacity could represent scarring, infection or less likely atelectasis. Retrocardiac opacity concerning for pneumonia versus atelectasis. Dictated by: Danielito Trimble M.D. on 10/22/2023 at 14:07 Approved by: Danielito Trimble M.D. on 10/22/2023 at 14:07
== END ==
PROVIDERS: PCP Family Medicine; Referring Provider Family Medicine; Visit Provider Family Medicine
DX: J18.9 Pneumonia, unspecified organism (principal)
CPT/HCPCS: 71046

== ENCOUNTER → 2024-03-01 07:45 | Outpatient (CLI) | payer OTHER, MEDICAID, SELFPAY ==
--- NOTE | 2024-03-01 07:47 | DI.ECHO.S_ITS ---
[place] [facility]---------+ [facility] : : [address] : : [place] : : [id number] : : Phone: [phone] Echocardiogram Report + + :Name: ONDINA ADAMSON Study Date: 03/01/2024 Height: 62 in : :[facility] ReadingLocation: Weight: 120 lb : : Gender: Female BSA: 1.5 m2 : :: 1970 Age: 53 yrs BP: 115/69 mmHg: :Reason For Study: PROLONGED QT SYNDROME : :Ordering Physician: STARLA DIEGO Performed By: Frannie Torres : :Referring: STARLA DIEGO : + + Interpretation Summary 1. The left ventricular contractility is normal. Estimate ejection fraction is greater than 55% with no segmental wall motion abnormalities. No LVH. Normal diastolic function. 2. The right ventricular contractility is normal. 3. All cardiac chambers are of normal size. 4. No significant valvular abnormalities. 5. No obvious intracardiac shunts. 6. No obvious intracardiac masses nor thrombi. 7. No hemodynamically significant pericardial effusion. 8. Low right-sided filling pressures. Conclusion: Normal biventricular function with no significant valvular nor structural abnormalities. Procedure: A two-dimensional transthoracic echocardiogram with color flow and Doppler was performed. The study quality was technically adequate. There is no prior echocardiogram noted for this patient. The patient was in sinus rhythm with heart rates between 60-65 bpm during the exam. Left Ventricle: The left ventricle is normal in size and wall thickness. The ejection fraction is estimated to be 60-65%. Right Ventricle: The right ventricle is normal in size and function. Atria: The left atrial size is normal. Right atrial size is normal. There is no Doppler evidence for an interatrial shunt. Mitral Valve: The mitral valve is normal in structure and function. There is trace mitral regurgitation. Aortic Valve: The aortic valve is trileaflet. The aortic valve opens well. There is no aortic valve stenosis. No aortic regurgitation is present. Tricuspid Valve: The tricuspid valve is normal in structure and function. There is trace tricuspid regurgitation. Pulmonary artery pressures cannot be estimated because of the lack of a measurable TR jet velocity. Pulmonic Valve: The pulmonic valve leaflets are thin and pliable; valve motion is normal. There is no pulmonic valvular regurgitation. Great Vessels: The aortic root is normal size. The dimensions of the ascending aorta are normal. The IVC is of normal diameter and collapses greater than 50% with a sniff. This suggests a low right atrial pressure of 3 mm Hg. Pericardium/ Pleura There is no pericardial effusion. There is no pleural effusion. MMode/2D Measurements & Calculations LVIDd: 4.9 cm LVOT diam: 2.1 cm LVIDs: 2.9 cm Ao root diam: 2.6 cm FS: 42.0 % asc Aorta Diam: 3.0 cm IVSd: 0.64 cm Ao Arch Diam (Prox Trans): 2.4 cm LVPWd: 0.51 cm LV polanco. diameter/BSA (cm/m^2): 3.2 LV sys. diameter/BSA (cm/m^2): 1.9 LA A2 area: 14.7 cm2 RA long axis: 3.5 cm LA A4 area: 12.3 cm2 RA area: 10.0 cm2 LA length (vol): 4.4 cm RA vol: 24.2 ml LA vol: 34.9 ml RA : 15.7 ml/m2 LA vol index: 22.7 ml/m2 RVD1 (basal): 3.2 cm RVD2 (mid): 2.7 cm TAPSE: 2.0 cm Doppler Measurements & Calculations Ao V2 max: 120.2 cm/sec LVOT Max Salvador: 73.4 cm/sec Ao V2 mean: 86.4 cm/sec LV V1 max P.2 mmHg Ao max P.8 mmHg LV V1 VTI: 17.1 cm Ao mean P.3 mmHg GERI(I,D): 2.1 cm2 Ao V2 VTI: 29.3 cm GERI(V,D): 2.2 cm2 sev ratio: 0.59 GERI indexed to BSA (cm^2/m^2): 1.3 MV E max salvador: 58.7 cm/sec PA V2 max: 107.7 cm/sec MV A max salvador: 50.5 cm/sec PA V2 mean: 74.1 cm/sec MV E/A: 1.2 PA mean P.5 mmHg Med Peak E' Salvador: 10.4 cm/sec PA pr(Accel): 29.3 mmHg E/E' med: 5.6 Lat Peak E' Salvador: 12.7 cm/sec E/E' lat: 4.6 E/e' average: 5.1 MV dec time: 0.25 sec SV(LVOT): 60.4 ml Reading Physician:
--- NOTE | 2024-03-01 19:17 | DI.NM.S_ITS ---
DATE OF SERVICE: 03/01/2024 PROCEDURE: Exercise stress test. INDICATIONS: History of opiate abuse, on methadone, history of QTc prolongation. CARDIAC STRESS: Patient underwent exercise stress test under the supervision of an attending staff. She walked on Tyrel protocol for 9 minutes and achieved maximum heart rate of 160, which was 95% of target heart rate. Resting blood pressure 120/70 and peak blood pressure 144/70 mmHg. Baseline rhythm was sinus. During stress some nonspecific ST-T changes without any convincing ischemic changes. Rare PVCs without any complex arrhythmias. In 1 minute in recovery, heart rate dropped from 150 beats per minute to 105 beats per minute with first-degree AV block. At 3 minutes in the recovery rhythm sinus with heart rate 80 and persistent first-degree AV block without any ischemic changes. CONCLUSION: Exercise stress test negative for inducible ischemia. Good exercise tolerance. KARELY -16%. Normal hemodynamic response. No chest pain. Had some shortness of breath during exercise. Rare PVCs. However, in the first minute of recovery, the patient developed first- degree AV block, which persisted at 3 minutes of recovery. Correlate clinically. Brendan Mcknight - NGUYỄN/josé/AY doc#: [id number]/job#: [id number] dd: 03/01/2024 16:38:00 dt: 03/01/2024 19:02:00 DICTATING /COPIES TO: Peggy Cooper MD COPIES MNE: ARI;
== END ==
PROVIDERS: PCP Family Medicine; Referring Provider Internal Medicine; Visit Provider Internal Medicine
DX: I45.81 Long QT syndrome (principal)
CPT/HCPCS: 93017; 93306

== ENCOUNTER 2024-06-12 12:10 | Emergency (ER) | payer OTHER, SELFPAY ==
[2024-06-12 12:15] VITALS: BP 117/63; PULSE 70; RESP 16; TEMP 37; O2SAT 99; BMI 23.8
--- NOTE | 2024-06-12 14:12 | ED_ITS ---
HPI - Dental/Oral <Belinda Amezcua PA-C - Last Filed: 06/12/24 14:35> General Chief complaint: Dental/Oral Stated complaint: toothache Time Seen by Provider: 06/12/24 14:10 Source: patient Mode of arrival: Ambulatory History of Present Illness HPI Narrative: 54-year-old female on Suboxone for heroin addiction presents to the ED with 6 days of lower right-sided dental pain. Patient states that she sees a dentist at [facility] and that her next appointment is on June 18. Patient states that she came to the ED since her dentist was not able to see her earlier and the tooth has been very painful. No fever, chills, nausea, vomiting. MD Complaint: tooth pain Teeth map: 2 1. Related Data Home Medications Medication Instructions Recorded Confirmed albuterol sulfate 90 mcg/actuation 1 puff inhalation Q4-6H PRN 03/25/21 04/06/21 aerosol inhaler Adequate Ventilation buprenorphine 8 mg-naloxone 2 mg 1 film sublingual BID 03/25/21 04/06/21 sublingual film (Suboxone) buspirone 15 mg tablet 15 mg PO BID 03/25/21 04/06/21 food supplemt, lactose-reduced ea PO 03/25/21 03/25/21 (Ensure oral liquid) trazodone 50 mg tablet 50 mg PO DAILY 03/25/21 04/06/21 Previous Rx's Medication Instructions Recorded famotidine 20 mg tablet 20 mg PO DAILY #90 tabs 04/06/21 amoxicillin 875 mg-potassium 1 tab PO Q12H 14 days #28 tabs 06/12/24 clavulanate 125 mg tablet Allergies Allergy/AdvReac Type Severity Reaction Status Date / Time No Known Allergies Allergy Unknown Verified 08/16/21 18:14 [NO KNOWN ALLERGIES] Review of Systems <Belinda Amezcua PA-C - Last Filed: 06/12/24 14:35> Constitutional Constitutional: Denies chills, Denies fatigue, Denies fever(s), Denies frequent falls, Denies lethargy and Denies weakness Eyes Eyes: Denies change in vision, Denies eye discharge, Denies irritation and Denies loss of vision ENT Ears, Nose, Mouth, and Throat: Denies change in voice, Reports dental pain, Denies dizziness, Denies neck pain, Denies sore throat and Denies throat swelling Cardiovascular Cardiovascular: Denies chest pain, Denies irregular heart rhythm, Denies lightheadedness, Denies palpitations, Denies dyspnea, Denies dyspnea on exertion and Denies orthopnea Respiratory Respiratory: Denies cough, Denies dyspnea, Denies dyspnea on exertion and Denies wheezing Gastrointestinal Gastrointestinal: Denies abdominal pain, Denies change in bowel habits, Denies diarrhea, Denies nausea and Denies vomiting Musculoskeletal Musculoskeletal: Denies neck pain and Denies numbness Integumentary/Breasts Skin/Breast: Denies pruritus, Denies erythema, Denies rash and Denies wounds Neurologic Neurologic: Denies behavioral changes, Denies confusion, Denies dizziness, Denies frequent falls, Denies loss of vision, Denies numbness and Denies weakness Psychiatric Psychiatric: Denies anxiety, Denies behavioral changes, Denies confusion, Denies depression, Denies homicidal ideation and Denies suicidal ideation Endocrine Endocrine: Denies fatigue, Denies flushing and Denies palpitations Hematologic/Lymphatic Hematologic/Lymphatic: Denies easy bruising Allergic/Immunologic Allergic/Immunologic: Denies urticaria, Denies throat swelling and Denies wheezing Patient History <Belinda Amezcua PA-C - Last Filed: 06/12/24 14:35> Medical History Anemia Surgical History Surgical history of tubal ligation H/O right knee surgery History of cholecystectomy Family History Grandmother Hypertension Stroke Sister Gallstones Grandmother Colon cancer Social History marital status: unknown household members: family occupational status: unemployed Smoking Status: Current every day smoker alcohol intake: former Smoking Status: Current every day smoker tobacco type: vaping alcohol intake frequency: holidays/special occasions only Exam <Belinda Amezcua PA-C - Last Filed: 06/12/24 14:35> Narrative Exam Narrative: Const General:?cooperative, healthy appearing and comfortable HENNH Head:?normal to inspection Ears:?hearing grossly normal bilaterally Nose:?external nose normal Face and sinus:?normal facial exam and sinuses nontender Mouth:?oral mucosae normal; poor dentition. Tenderness to palpation of the right lower gum. Throat:?posterior oropharynx normal Eyes General:?appearance normal, both eyes and all related structures Neck Neck:?normal visual inspection and no lymphadenopathy noted Resp Effort & Inspection:?normal respiratory effort Auscultation:?clear to auscultation bilaterally Cardio Rate:?regular rate Rhythm:?regular rhythm Neuro General:?patient alert, patient awake and patient oriented x3 Initial Vital Signs Initial Vital Signs: Vital Signs Temperature 98.6 F 06/12/24 12:15 Pulse Rate 70 06/12/24 12:15 Respiratory Rate 16 06/12/24 12:15 Blood Pressure 117/63 06/12/24 12:15 Pulse Oximetry 99 06/12/24 12:15 Oxygen Delivery Method Room Air 06/12/24 12:15 <Lora Peguero DO - Last Filed: 06/16/24 12:52> Initial Vital Signs Initial Vital Signs: Vital Signs Temperature 98.6 F 06/12/24 12:15 Pulse Rate 70 06/12/24 12:15 Respiratory Rate 16 06/12/24 12:15 Blood Pressure 117/63 06/12/24 12:15 Pulse Oximetry 99 06/12/24 12:15 Oxygen Delivery Method Room Air 06/12/24 12:15 Course <Belinad Amezcua PA-C - Last Filed: 06/12/24 14:35> Orders Ordered: Discontinued Medications Acetaminophen (Acetaminophen 325 Mg Tablet) 975 mg PO NOW ONE Stop: 06/12/24 14:22 Last Admin: 06/12/24 14:26 Dose: 975 mg Documented By: HETAL Vital Signs Vital signs: Vital Signs - 8 hr 06/12/24 12:15 Temperature 98.6 F Pulse Rate 70 Respiratory Rate 16 Blood Pressure 117/63 Pulse Oximetry 99 Oxygen Delivery Method Room Air <Lora Peguero DO - Last Filed: 06/16/24 12:52> Orders Ordered: Discontinued Medications Acetaminophen (Acetaminophen 325 Mg Tablet) 975 mg PO NOW ONE Stop: 06/12/24 14:22 Last Admin: 06/12/24 14:26 Dose: 975 mg Documented By: HETAL Vital Signs Vital signs: Vital Signs - 8 hr 06/12/24 12:15 Temperature 98.6 F Pulse Rate 70 Respiratory Rate 16 Blood Pressure 117/63 Pulse Oximetry 99 Oxygen Delivery Method Room Air MDM - Dental/Oral <Belinda Amezcua PA-C - Last Filed: 06/12/24 14:35> MDM Narrative Medical decision making narrative: 54-year-old female on Suboxone for heroin addiction presents to the ED with 6 days of lower right-sided dental pain. Concern for odontogenic infection/periapical abscess versus cracked tooth versus caries versus other. Prescribed antibiotics. Given that patient is on Suboxone, patient agrees to take ibuprofen and Tylenol for pain control. Recommend follow-up with dentist as soon as possible. ED return precautions discussed with patient. Patient verbalized understanding. Medical records reviewed: Yes Discharge Plan Departure Patient Disposition: Home Clinical Impression: Pain, dental Instructions: DI for Dental Pain Activity Restrictions/Additional Instructions: You were evaluated in the ED today for dental pain. You are being prescribed antibiotics. You may also take 800 mg of ibuprofen every 8 hours with food. You can also take 1000 mg of Tylenol every 8 hours. Please follow-up with your dentist as soon as possible. Return to the ED if you have worsening symptoms. Medical records reviewed: Yes Prescriptions: New amoxicillin-pot clavulanate 875-125 mg tablet 1 tab PO Q12H 14 Days Qty: 28 0RF No Action trazodone 50 mg tablet 50 mg PO DAILY buprenorphine-naloxone [Suboxone] 8-2 mg film 1 film sublingual BID buspirone 15 mg tablet 15 mg PO BID albuterol sulfate 90 mcg/actuation HFA aerosol inhaler 1 puff inhalation Q4-6H PRN (Reason: Adequate Ventilation) Ensure Liquid PO famotidine 20 mg tablet 20 mg PO DAILY Qty: 90 0RF Referrals: Liyah Carlin MD [Primary Care Provider] - Stand Alone Forms: Patient Portal/API/Survey ED Sign-out <Lora Peguero DO - Last Filed: 06/16/24 12:52> Cosign ED Attending Cosignature Attestation: I was available for consultation.
[2024-06-12] MEDS: ACETAMINOPHEN 325 MG TABLET 975 MG PO (14:26)
== END 2024-06-12 14:29 | disposition home or self-care (01) ==
PROVIDERS: Emergency Provider Student in an Organized Health Care Education/Training Program; PCP Family Medicine
DX: K08.89 Other specified disorders of teeth and supporting structures (principal); F11.20 Opioid dependence, uncomplicated
CPT/HCPCS: 99283